=== PATIENT | female | born 1965 | race Asian ===

== ENCOUNTER 2018-09-24 16:51 | Inpatient (IN) | payer OTHER ==
[~2018-09-24] VITALS: Ht 157.5 cm; Wt 92.7 kg
[2018-09-24] MEDS ORDERED: LABETALOL 5MG/ML, 20ML ONE (17:09)
[2018-09-24] MEDS ORDERED: OMNIPAQUE 350 MG/ML, 100ML BOTTLE ONE (17:20)
[2018-09-24 17:22] LABS: BASOPHILS # (AUTO) 0.05 x10^3/uL (0-0.1); BASOPHILS % (AUTO) 1 % (0-1); EOSINOPHILS # (AUTO) 0.17 x10^3/uL (0-0.4); EOSINOPHILS % (AUTO) 2 % (1-7); LYMPHOCYTES # (AUTO) 2.62 x10^3/uL (1-3.4); LYMPHOCYTES % (AUTO) 34 % (22-44); MD NO; MEAN CORPUSCULAR HEMOGLOBIN 22.3 pg (27.0-34.8); MEAN CORPUSCULAR HGB CONC 31.8 g/dL (32.4-35.8); MONOCYTES # (AUTO) 0.36 x10^3/uL (0.2-0.8); MONOCYTES % (AUTO) 5 % (2-9); NEUTROPHILS # (AUTO) 4.45 x10^3/uL (1.8-6.8); NEUTROPHILS % (AUTO) 58 % (42-75); PLATELET COUNT 357 x10^3/uL (130-400); RED BLOOD COUNT 5.38 x10^6/uL (3.82-5.3); RED CELL DISTRIBUTION WIDTH 17.9 % (9.6-15.2)
[2018-09-24 17:32] LABS: INTERNATIONAL NORMALIZED RATIO 0.97 (0.93-1.1); PROTHROMBIN TIME 10.1 Seconds (9.6-11.5)
[2018-09-24] MEDS ORDERED: LABETALOL 5MG/ML, 20ML IVPush ONE (18:17)
[2018-09-24] MEDS ORDERED: ACETAMINOPHEN 325 MG TABLET PO PRN (19:00)
[2018-09-24] MEDS ORDERED: LABETALOL 5MG/ML, 20ML IV PRN (19:00)
[2018-09-24] MEDS ORDERED: ONDANSETRON 2MG/ML, 2ML IVPush PRN (19:00)
[2018-09-24 19:23] LABS: ANION GAP 8 mmol/L (5-15); CALCIUM 8.9 mg/dL (8.5-10.1); CHLORIDE 106 mmol/L (98-107); CREATININE 0.86 mg/dL (0.55-1.02)
[2018-09-24 20:00] VITALS: BP 160/85
[2018-09-24] MEDS: ATORVASTATIN 40 MG TABLET PO SCH (21:00)
[2018-09-24 21:31] VITALS: BP 179/105
[2018-09-24] MEDS: ENOXAPARIN 40 MG/0.4 ML SQ SCH (22:11)
[2018-09-25] VITALS (7 sets, daily range): BP systolic 120–160; BP diastolic 77–90
[2018-09-25 05:43] LABS: CHOL/HDL RATIO 4.7; LDL/HDL RATIO 2.7 (0.5-3.0)
[2018-09-25] MEDS: ASPIRIN 81 MG TABLET CHEW PO/NG SCH (08:11)
[2018-09-25] MEDS ORDERED: LISINOPRIL 10 MG TABLET PO SCH (09:00)
[2018-09-25] MEDS ORDERED: LORazepam 0.5MG TABLET PO ONE (09:30)
[2018-09-25 15:28] LABS: HEMOGLOBIN A1C 6.5 % (4.2-6.3)
[2018-09-25] MEDS: ATORVASTATIN 40 MG TABLET PO SCH (20:32)
[2018-09-25] MEDS: ENOXAPARIN 40 MG/0.4 ML SQ SCH (20:32)
[2018-09-26 02:34] VITALS: BP 122/75
[2018-09-26 05:26] LABS: ALBUMIN 3.4 g/dL (3.4-5.0); ANION GAP 9 mmol/L (5-15); CALCIUM 8.3 mg/dL (8.5-10.1); CHLORIDE 108 mmol/L (98-107); CREATININE 0.72 mg/dL (0.55-1.02)
[2018-09-26] MEDS ORDERED: SODIUM CHLORIDE 0.9% 1,000 ML IV SCH (06:30)
[2018-09-26] MEDS ORDERED: LORazepam 0.5MG TABLET PO ONE (07:00)
[2018-09-26 07:03] VITALS: BP 124/84
[2018-09-26 07:04] VITALS: BP 126/83
[2018-09-26 07:05] VITALS: BP 122/82
[2018-09-26] MEDS: ASPIRIN 81 MG TABLET CHEW PO/NG SCH (07:47)
[2018-09-26 12:25] VITALS: BP 144/88
[2018-09-26 14:55] LABS: FREE T4 (FREE THYROXINE) 1.07 ng/dL (0.76-1.46); THYROID STIMULATING HORMONE 0.947 mIU/L (0.358-3.740)
[2018-09-26] MEDS ORDERED: ATOR40TA78 PO (15:54)
[2018-09-26] MEDS ORDERED: ASPI-515 PO/NG (15:54)
== END 2018-09-26 16:52 | disposition home or self-care (01) | DRG 65 ==
LOC: ED 19:15 → EDIP 19:41 → 4EST 19:45 → DCLOUNGE 09-26 16:28
PROVIDERS: ADMIT Internal Medicine; ATTEND Internal Medicine
DX: I63.9 Cerebral infarction, unspecified (principal); I16.1 Hypertensive emergency; G81.94 Hemiplegia, unspecified affecting left nondominant side; F40.240 Claustrophobia; E78.5 Hyperlipidemia, unspecified; E04.1 Nontoxic single thyroid nodule; R47.01 Aphasia; Z79.82 Long term (current) use of aspirin; Z86.72 Personal history of thrombophlebitis; Z87.448 Personal history of other diseases of urinary system; Z82.49 Family history of ischemic heart disease and other diseases of the circulatory system; Z80.1 Family history of malignant neoplasm of trachea, bronchus and lung; Z80.0 Family history of malignant neoplasm of digestive organs
CPT/HCPCS: 36415; 70450; 70496; 70498; 70551; 80047; 80048; 80061; 82040; 82962; 83036; 84439; 84443; 85025; 85610; 85730; 93005; 93306; 93880; 96374; 99285; G0378; J1650; Q9967; 92523-GN; J7030

== ENCOUNTER 2018-12-08 18:47 | Emergency (ER) | payer OTHER ==
[~2018-12-08] VITALS: Ht 157.5 cm; Wt 87.9 kg
[~2018-12-08 18:47] MED LIST: ASPI-515 PO/NG; ATOR40TA78 PO
[2018-12-08 19:35] LABS: MEAN CORPUSCULAR HEMOGLOBIN 21.7 pg (27.0-34.8); MEAN CORPUSCULAR HGB CONC 31.4 g/dL (32.4-35.8); MEAN CORPUSCULAR VOLUME 69.1 fL (80-100); MEAN PLATELET VOLUME 7.5 fL (7.4-10.4); PLATELET COUNT 261 x10^3/uL (130-400); RED BLOOD COUNT 4.23 x10^6/uL (3.82-5.3); RED CELL DISTRIBUTION WIDTH 24.8 % (9.6-15.2)
[2018-12-08 19:43] LABS: ALANINE AMINOTRANSFERASE 22 U/L (12-78); ALBUMIN 3.6 g/dL (3.4-5.0); ANION GAP 10 mmol/L (5-15); CALCIUM 8.8 mg/dL (8.5-10.1); CHLORIDE 108 mmol/L (98-107); CREATININE 0.77 mg/dL (0.55-1.02)
[2018-12-08 19:45] LABS: ALKALINE PHOSPHATASE 74 U/L (45-117); BILIRUBIN,TOTAL 0.4 mg/dL (0.2-1.0); TOTAL PROTEIN 7.6 g/dL (6.4-8.2)
[2018-12-08 19:49] LABS: BASOPHILS # (AUTO) 0.01 x10^3/uL (0-0.1); BASOPHILS % (AUTO) 0 % (0-1); EOSINOPHILS # (AUTO) 0.08 x10^3/uL (0-0.4); EOSINOPHILS % (AUTO) 1 % (1-7); LYMPHOCYTES # (AUTO) 0.96 x10^3/uL (1-3.4); LYMPHOCYTES % (AUTO) 16 % (22-44); MD MORPH REVIEW ONLY; MONOCYTES # (AUTO) 0.42 x10^3/uL (0.2-0.8); MONOCYTES % (AUTO) 7 % (2-9); NEUTROPHILS # (AUTO) 4.68 x10^3/uL (1.8-6.8); NEUTROPHILS % (AUTO) 76 % (42-75)
[2018-12-08 19:50] LABS: <PLATELET ESTIMATE> ADEQUATE; <PLT MORPHOLOGY> NORMAL PLT MORPH; ANISOCYTOSIS 2+; HYPOCHROMIA 1+; MICROCYTOSIS 2+; OVALOCYTES 1+; POLYCHROMASIA 1+
--- NOTE | 2018-12-08 20:10 | NUR ---
REPORT TO ALENA ELENA
--- NOTE | 2018-12-08 20:13 | NUR ---
PT REPORTS HAVING A TINGLING/NUMBNESS FEELING AROUND HER LIPS TONIGHT. PT REPORTS IT HAS RESOLVED NOW. FAMILY AT BEDSIDE. CALL LIGHT IN PLACE. WILL CONTINUE TO MONITOR.
--- NOTE | 2018-12-08 20:14 | NUR ---
ED PO AT BEDSIDE TO EXAMINE PT. PT REPORTS NUMBNESS TO LIPS THAT STARTED APPROX 2 HRS AGO, BUT HAS MOSTLY RESOLVED. 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 PT IS A&O, RESPS EVEN AND UNLABORED, BP AND SPO2 MONITORS IN PLACE. PER MD, CODE NEURO NOT APPROPRIATE FOR THIS PT D/T NORMAL EXAM AND RAPIDLY RESOLVING SX.
--- NOTE | 2018-12-08 20:21 | NUR ---
DR FONTENOT IN ROOM
[2018-12-08 20:38] VITALS: BP 123/54
== END 2018-12-08 20:47 | disposition home or self-care (01) ==
LOC: ED 19:57
DX: D64.9 Anemia, unspecified (principal); R20.2 Paresthesia of skin
CPT/HCPCS: 36415; 70450; 80053; 85025; 93005; 99284

== ENCOUNTER → 2019-01-30 | Outpatient (CLI) | payer OTHER ==
[~2019-01-30] MED LIST changes: +ACET325T14 PO; +ENOX80SY5 SQ; +LOSA25TA25 PO; +MULT-709 PO; +ROSU10TA2 PO
[2019-01-30 12:08] LABS: INTERNATIONAL NORMALIZED RATIO 0.97 (0.93-1.1); PROTHROMBIN TIME 10.2 Seconds (9.6-11.5)
[2019-01-30 12:09] LABS: ALANINE AMINOTRANSFERASE 21 U/L (12-78); ANION GAP 6 mmol/L (5-15); CALCIUM 9.2 mg/dL (8.5-10.1); CHLORIDE 108 mmol/L (98-107); CREATININE 0.72 mg/dL (0.55-1.02)
[2019-01-30 12:12] LABS: ALKALINE PHOSPHATASE 76 U/L (45-117); BILIRUBIN,TOTAL 0.5 mg/dL (0.2-1.0); TOTAL PROTEIN 7.6 g/dL (6.4-8.2)
[2019-01-30 12:15] LABS: BASOPHILS # (AUTO) 0.01 x10^3/uL (0-0.1); BASOPHILS % (AUTO) 0 % (0-1); EOSINOPHILS # (AUTO) 0.07 x10^3/uL (0-0.4); EOSINOPHILS % (AUTO) 1 % (1-7); LYMPHOCYTES # (AUTO) 0.82 x10^3/uL (1-3.4); LYMPHOCYTES % (AUTO) 14 % (22-44); MD NO; MEAN CORPUSCULAR HEMOGLOBIN 23.8 pg (27.0-34.8); MEAN CORPUSCULAR HGB CONC 30.6 g/dL (32.4-35.8); MEAN PLATELET VOLUME 7.1 fL (7.4-10.4); MONOCYTES # (AUTO) 0.57 x10^3/uL (0.2-0.8); MONOCYTES % (AUTO) 10 % (2-9); NEUTROPHILS # (AUTO) 4.54 x10^3/uL (1.8-6.8); NEUTROPHILS % (AUTO) 75 % (42-75); PLATELET COUNT 327 x10^3/uL (130-400)
== END | disposition home or self-care (01) ==
LOC: STAR 10:16
PROVIDERS: ATTEND Specialist
DX: R19.07 Generalized intra-abdominal and pelvic swelling, mass and lump (principal); R97.1 Elevated cancer antigen 125 [CA 125]
CPT/HCPCS: 36415; 80053; 85025; 85610; 85730

== ENCOUNTER 2019-02-03 10:23 | Inpatient (IN) | payer OTHER ==
[2019-02-03] VITALS (7 sets, daily range): BP systolic 129–155; BP diastolic 83–90
[~2019-02-03] VITALS: Ht 162.6 cm; Wt 81.7 kg
[2019-02-03] MEDS ORDERED: LACTATED RINGERS 1,000 ML IV SCH (15:32)
[2019-02-03] MEDS ORDERED: percocet PO (15:33)
[2019-02-03] MEDS ORDERED: MIDAZOLAM 1 MG/ML, 2ML ONE (16:58)
[2019-02-03] MEDS ORDERED: FENTANYL PF 250 MCG/5ML ONE ×3 (17:00→20:53)
[2019-02-03] MEDS ORDERED: PROPOFOL 10 MG/ML, 20ML ONE (17:01)
[2019-02-03] MEDS ORDERED: ROCURONIUM 10MG/ML,5ML ONE (17:01)
[2019-02-03] MEDS ORDERED: SUCCINYLCHOLINE 20 MG/ML, 10ML ONE (17:02)
[2019-02-03] MEDS ORDERED: INDIGO CARMINE 0.8%, 5ML ONE (17:42)
[2019-02-03] MEDS ORDERED: HEPARIN 1,000 UNITS/ML, 10ML ONE (17:42)
[2019-02-03] MEDS ORDERED: CEFOTETAN 1 GM ONE (18:51)
[2019-02-03] MEDS ORDERED: DEXAMETHASONE 4 MG/ML, 1ML ONE (18:51)
[2019-02-03] MEDS ORDERED: CEFOTETAN 2 GM ONE (18:51)
[2019-02-03] MEDS ORDERED: DIPHENHYDRAMINE 50 MG/ML, 1ML ONE (20:20)
[2019-02-03] MEDS ORDERED: ONDANSETRON 2MG/ML, 2ML IV PRN (20:30)
[2019-02-03] MEDS ORDERED: LORazepam 2 MG/ML, 1ML IVPush PRN (20:30)
[2019-02-03] MEDS ORDERED: MEPERIDINE/PF 25MG/0.5ML IVPush PRN (20:30)
[2019-02-03] MEDS ORDERED: FENTANYL PF 100 MCG/2ML IV PRN (20:30)
[2019-02-03] MEDS ORDERED: OXYcodone 5 MG/5 ML ORAL.SOL UDC PO PRN (20:30)
[2019-02-03] MEDS ORDERED: hydrALAzine 20 MG/ML, 1ML IV PRN (20:30)
[2019-02-03] MEDS ORDERED: ONDANSETRON ODT 8 MG PO PRN (20:30)
[2019-02-03] MEDS ORDERED: ALBUTEROL SULFATE 2.5 MG/3 ML NPPB PRN (20:30)
[2019-02-03] MEDS ORDERED: LABETALOL 5 MG/ML SYRINGE IV PRN (20:30)
[2019-02-03] MEDS ORDERED: PROMETHAZINE 12.5 MG SUPP PR PRN (20:30)
[2019-02-03] MEDS ORDERED: DIAZEPAM 5 MG/ML, 10ML VIAL IVPush PRN (20:30)
[2019-02-03] MEDS ORDERED: MORPHINE SULFATE 4 MG/ML, 1ML IVPush PRN (20:30)
[2019-02-03] MEDS ORDERED: PROMETHAZINE 25 MG/ML, 1ML IV PRN (20:30)
[2019-02-03] MEDS ORDERED: EPHEDRINE 50 MG/ML, 1ML IVPush PRN (20:30)
[2019-02-03] MEDS ORDERED: HALOPERIDOL 5 MG/ML IV PRN (20:30)
[2019-02-03] MEDS ORDERED: SUGAMMADEX 200 MG/2 ML IVPush ONE (21:25)
[2019-02-03] MEDS ORDERED: ONDANSETRON 2MG/ML, 2ML ONE (21:36)
[2019-02-03] MEDS ORDERED: LIDOCAINE-MPF 2% ,5ML ONE ×2 (21:40)
[2019-02-03] MEDS ORDERED: HYDROmorphone 2 MG/ML, 1ML ONE (22:08)
[2019-02-03] MEDS ORDERED: FENTANYL PF 100 MCG/2ML ONE (22:08)
[2019-02-03] MEDS: HYDROmorphone 2 MG/ML, 1ML IVPush PRN ×2 (22:14→22:21)
[2019-02-03] MEDS ORDERED: D5%-0.45NACL+KCL 20MEQ 1,000 ML IV SCH (23:00)
[2019-02-03 23:14] LABS: ALANINE AMINOTRANSFERASE 50 U/L (12-78); ALBUMIN 2.4 g/dL (3.4-5.0); ANION GAP 5 mmol/L (5-15); CALCIUM 7.5 mg/dL (8.5-10.1); CHLORIDE 112 mmol/L (98-107)
[2019-02-03 23:16] LABS: ALKALINE PHOSPHATASE 37 U/L (45-117); BILIRUBIN,TOTAL 0.8 mg/dL (0.2-1.0); TOTAL PROTEIN 4.7 g/dL (6.4-8.2)
[2019-02-04 00:43] VITALS: BP 145/87
[2019-02-04] MEDS: FAMOTIDINE 20 MG/2 ML IV SCH ×3 (01:18→21:41)
[2019-02-04] MEDS: KETOROLAC 30 MG/1 ML IV SCH ×4 (01:19→21:41)
[2019-02-04 02:00] VITALS: BP 142/86
[2019-02-04] MEDS: D5%-0.45% NACL 1,000 ML IV SCH ×4 (02:44→21:44)
[2019-02-04 06:35] VITALS: BP 135/82
[2019-02-04 09:44] LABS: ALBUMIN 2.1 g/dL (3.4-5.0); ANION GAP 6 mmol/L (5-15); CALCIUM 7.6 mg/dL (8.5-10.1); CHLORIDE 111 mmol/L (98-107); CREATININE 0.73 mg/dL (0.55-1.02)
[2019-02-04 11:27] LABS: MEAN CORPUSCULAR HGB CONC 32.1 g/dL (32.4-35.8); MEAN CORPUSCULAR VOLUME 80.9 fL (80-100); RED BLOOD COUNT 4.18 x10^6/uL (3.82-5.3)
[2019-02-04 11:28] LABS: MEAN PLATELET VOLUME 7.4 fL (7.4-10.4); PLATELET COUNT 194 x10^3/uL (130-400)
[2019-02-04 11:30] LABS: MD YES
[2019-02-04 11:32] LABS: BAND#(MANUAL) 0.28 x10^3/uL; BANDS%(MANUAL) 4 % (0-7); LYMPH#(MANUAL) 0.21 x10^3/uL (1-3.4); LYMPHS% (MANUAL) 3 % (22-44); MONOS#(MANUAL) 0.14 x10^3/uL (0.3-2.7); MONOS% (MANUAL) 2 % (2-9); SEG#(MANUAL) 6.37 x10^3/uL (1.8-6.8); SEGS% (MANUAL) 91 % (42-75)
[2019-02-04 11:36] LABS: ANISOCYTOSIS 2+; HYPOCHROMIA 1+; MICROCYTOSIS 1+; OVALOCYTES 1+; POLYCHROMASIA 1+
[2019-02-04 11:37] LABS: <PLATELET ESTIMATE> ADEQUATE; <PLT MORPHOLOGY> NORMAL PLT MORPH
[2019-02-04 14:12] VITALS: BP 129/77
[2019-02-04 19:24] VITALS: BP 117/73
[2019-02-05 02:02] VITALS: BP 116/70
[2019-02-05] MEDS: D5%-0.45% NACL 1,000 ML IV SCH ×3 (04:18→18:21)
[2019-02-05 05:06] LABS: BASOPHILS # (AUTO) 0.01 x10^3/uL (0-0.1); BASOPHILS % (AUTO) 0 % (0-1); EOSINOPHILS # (AUTO) 0.01 x10^3/uL (0-0.4); EOSINOPHILS % (AUTO) 0 % (1-7); LYMPHOCYTES # (AUTO) 0.74 x10^3/uL (1-3.4); LYMPHOCYTES % (AUTO) 12 % (22-44); MD NO; MEAN CORPUSCULAR HEMOGLOBIN 26.1 pg (27.0-34.8); MEAN CORPUSCULAR HGB CONC 32.2 g/dL (32.4-35.8); MEAN PLATELET VOLUME 7.2 fL (7.4-10.4); MONOCYTES # (AUTO) 0.61 x10^3/uL (0.2-0.8); MONOCYTES % (AUTO) 10 % (2-9); NEUTROPHILS # (AUTO) 5.05 x10^3/uL (1.8-6.8); NEUTROPHILS % (AUTO) 79 % (42-75); PLATELET COUNT 235 x10^3/uL (130-400); RED BLOOD COUNT 3.56 x10^6/uL (3.82-5.3); RED CELL DISTRIBUTION WIDTH 17.7 % (9.6-15.2)
[2019-02-05] MEDS: KETOROLAC 30 MG/1 ML IV SCH ×3 (06:32→20:30)
[2019-02-05] MEDS: FAMOTIDINE 20 MG/2 ML IV SCH ×2 (08:17→20:30)
[2019-02-05] MEDS: RIVAROXABAN 15 MG TABLET PO SCH ×2 (08:17→16:15)
[2019-02-05 08:31] VITALS: BP 110/68
[2019-02-05 12:02] VITALS: BP 117/71
[2019-02-05] MEDS: ACETAMINOPHEN 325 MG TABLET PO PRN ×2 (16:15→22:56)
[2019-02-05 20:07] VITALS: BP 93/60
[2019-02-06] MEDS: D5%-0.45% NACL 1,000 ML IV SCH ×4 (00:18→21:00)
[2019-02-06 00:45] VITALS: BP 95/62
[2019-02-06] MEDS: KETOROLAC 30 MG/1 ML IV SCH ×3 (04:49→21:39)
[2019-02-06 08:30] VITALS: BP 102/64
[2019-02-06] MEDS: FAMOTIDINE 20 MG/2 ML IV SCH ×2 (09:44→21:39)
[2019-02-06] MEDS: RIVAROXABAN 15 MG TABLET PO SCH (09:44)
[2019-02-06] MEDS: ACETAMINOPHEN 325 MG TABLET PO PRN (09:56)
[2019-02-06 14:01] VITALS: BP 108/61
[2019-02-06 20:09] VITALS: BP 135/79
[2019-02-07 02:00] VITALS: BP 124/73
[2019-02-07] MEDS: D5%-0.45% NACL 1,000 ML IV SCH (02:32)
[2019-02-07] MEDS: KETOROLAC 30 MG/1 ML IV SCH ×3 (05:06→21:35)
[2019-02-07 08:41] VITALS: BP 118/74
[2019-02-07] MEDS ORDERED: RIVAROXABAN 20 MG TABLET PO SCH (09:00)
[2019-02-07] MEDS ORDERED: OXYcodone/APAP 7.5/325MG TABLET PO PRN (10:30)
[2019-02-07] MEDS: FAMOTIDINE 20 MG/2 ML IV SCH ×2 (10:39→21:35)
[2019-02-07] MEDS ORDERED: ONDANSETRON 4 MG TABLET ONE (12:23)
[2019-02-07 12:24] VITALS: BP 148/91
[2019-02-07] MEDS ORDERED: ONDANSETRON ODT 4 MG ONE (12:24)
[2019-02-07] MEDS: ONDANSETRON ODT 4 MG PO PRN ×2 (12:29→23:00)
[2019-02-07] MEDS ORDERED: ONDANSETRON 2MG/ML, 2ML ONE (18:04)
[2019-02-07] MEDS ORDERED: ONDANSETRON 2MG/ML, 2ML IVPush ONE (18:30)
[2019-02-07 19:52] VITALS: BP 136/81
[2019-02-08] MEDS: MORPHINE SULFATE 4 MG/ML, 1ML IVPush PRN ×2 (00:12→10:20)
[2019-02-08 02:48] VITALS: BP 138/81
[2019-02-08] MEDS: ONDANSETRON 2MG/ML, 2ML IVPush PRN (06:25)
[2019-02-08] MEDS: KETOROLAC 30 MG/1 ML IV SCH ×2 (06:25→13:52)
[2019-02-08] MEDS: D5%-0.45NACL+KCL 20MEQ 1,000 ML IV SCH ×3 (06:27→22:04)
[2019-02-08] MEDS: FAMOTIDINE 20 MG/2 ML IV SCH ×2 (07:26→21:31)
[2019-02-08] MEDS: RIVAROXABAN 15 MG TABLET PO SCH ×2 (07:27→21:31)
[2019-02-08 08:30] VITALS: BP 138/86
[2019-02-08 13:56] VITALS: BP 120/75
[2019-02-08 19:29] VITALS: BP 136/84
[2019-02-09 01:48] VITALS: BP 154/84
[2019-02-09] MEDS: ACETAMINOPHEN 325 MG TABLET PO PRN ×2 (01:58→09:02)
[2019-02-09] MEDS: D5%-0.45NACL+KCL 20MEQ 1,000 ML IV SCH ×3 (05:22→19:56)
[2019-02-09 08:24] VITALS: BP 148/77
[2019-02-09] MEDS: RIVAROXABAN 15 MG TABLET PO SCH ×2 (09:02→20:47)
[2019-02-09] MEDS: FAMOTIDINE 20 MG/2 ML IV SCH ×2 (09:02→20:47)
[2019-02-09 12:54] LABS: ALANINE AMINOTRANSFERASE 12 U/L (12-78); ALBUMIN 1.5 g/dL (3.4-5.0); ANION GAP 6 mmol/L (5-15); CALCIUM 8.1 mg/dL (8.5-10.1); CHLORIDE 109 mmol/L (98-107); CREATININE 1.38 mg/dL (0.55-1.02)
[2019-02-09 12:56] LABS: ALKALINE PHOSPHATASE 63 U/L (45-117); BILIRUBIN,TOTAL 0.5 mg/dL (0.2-1.0); TOTAL PROTEIN 5.2 g/dL (6.4-8.2)
[2019-02-09 12:58] LABS: MEAN CORPUSCULAR HEMOGLOBIN 26.5 pg (27.0-34.8); MEAN CORPUSCULAR HGB CONC 33.4 g/dL (32.4-35.8); MEAN CORPUSCULAR VOLUME 79.4 fL (80-100); MEAN PLATELET VOLUME 6.8 fL (7.4-10.4); PLATELET COUNT 523 x10^3/uL (130-400); RED BLOOD COUNT 3.84 x10^6/uL (3.82-5.3)
[2019-02-09 13:31] VITALS: BP 144/77
[2019-02-09 13:32] LABS: BASOPHILS # (AUTO) 0.01 x10^3/uL (0-0.1); BASOPHILS % (AUTO) 0 % (0-1); EOSINOPHILS # (AUTO) 0.11 x10^3/uL (0-0.4); EOSINOPHILS % (AUTO) 2 % (1-7); LYMPHOCYTES # (AUTO) 0.58 x10^3/uL (1-3.4); LYMPHOCYTES % (AUTO) 8 % (22-44); MD MORPH REVIEW ONLY; MONOCYTES # (AUTO) 0.67 x10^3/uL (0.2-0.8); MONOCYTES % (AUTO) 10 % (2-9); NEUTROPHILS # (AUTO) 5.46 x10^3/uL (1.8-6.8); NEUTROPHILS % (AUTO) 80 % (42-75)
[2019-02-09 13:33] LABS: ANISOCYTOSIS 2+; MICROCYTOSIS 1+; OVALOCYTES 1+; POLYCHROMASIA 1+; SCHISTOCYTES 1+
[2019-02-09 13:34] LABS: <PLATELET ESTIMATE> INCREASED; <PLT MORPHOLOGY> NORMAL PLT MORPH; ECHINOCYTES 1+
[2019-02-09] MEDS ORDERED: SODIUM CHLORIDE 0.9% 1,000ML IVBOLUS ONE (18:00)
[2019-02-09] MEDS: ONDANSETRON 2MG/ML, 2ML IVPush PRN (18:59)
[2019-02-09 19:36] VITALS: BP 152/80
[2019-02-10] MEDS: ACETAMINOPHEN 325 MG TABLET PO PRN ×4 (00:27→22:40)
[2019-02-10 01:50] VITALS: BP 146/79
[2019-02-10] MEDS: D5%-0.45NACL+KCL 20MEQ 1,000 ML IV SCH ×3 (04:24→22:52)
[2019-02-10] MEDS: ONDANSETRON 2MG/ML, 2ML IVPush PRN (09:13)
[2019-02-10] MEDS: FAMOTIDINE 20 MG/2 ML IV SCH ×2 (09:13→21:01)
[2019-02-10] MEDS: RIVAROXABAN 15 MG TABLET PO SCH ×2 (09:14→21:01)
[2019-02-10 09:27] VITALS: BP 135/70
[2019-02-10 10:30] LABS: BASOPHILS # (AUTO) 0.03 x10^3/uL (0-0.1); BASOPHILS % (AUTO) 1 % (0-1); EOSINOPHILS % (AUTO) 4 % (1-7); LYMPHOCYTES # (AUTO) 0.65 x10^3/uL (1-3.4); LYMPHOCYTES % (AUTO) 12 % (22-44); MD NO; MEAN CORPUSCULAR HEMOGLOBIN 25.7 pg (27.0-34.8); MEAN CORPUSCULAR HGB CONC 32.1 g/dL (32.4-35.8); MEAN PLATELET VOLUME 6.4 fL (7.4-10.4); MONOCYTES # (AUTO) 0.61 x10^3/uL (0.2-0.8); MONOCYTES % (AUTO) 11 % (2-9); NEUTROPHILS # (AUTO) 4.14 x10^3/uL (1.8-6.8); NEUTROPHILS % (AUTO) 74 % (42-75); PLATELET COUNT 582 x10^3/uL (130-400); RED BLOOD COUNT 3.69 x10^6/uL (3.82-5.3); RED CELL DISTRIBUTION WIDTH 17.3 % (9.6-15.2)
[2019-02-10 10:39] LABS: ANION GAP 4 mmol/L (5-15); CHLORIDE 111 mmol/L (98-107); CREATININE 1.16 mg/dL (0.55-1.02)
[2019-02-10 14:00] VITALS: BP 147/84
[2019-02-10 18:56] VITALS: BP 144/84
[2019-02-11] MEDS: MORPHINE SULFATE 4 MG/ML, 1ML IVPush PRN ×4 (00:57→21:14)
[2019-02-11 02:23] VITALS: BP 149/82
[2019-02-11] MEDS: D5%-0.45NACL+KCL 20MEQ 1,000 ML IV SCH ×2 (05:51→21:25)
[2019-02-11] MEDS: ACETAMINOPHEN 325 MG TABLET PO PRN (06:17)
[2019-02-11] MEDS: ONDANSETRON 2MG/ML, 2ML IVPush PRN (06:26)
[2019-02-11 07:50] VITALS: BP 149/85
[2019-02-11] MEDS: FAMOTIDINE 20 MG/2 ML IV SCH (10:08)
[2019-02-11] MEDS: RIVAROXABAN 15 MG TABLET PO SCH ×2 (10:08→21:14)
[2019-02-11 10:29] LABS: ANION GAP 3 mmol/L (5-15); CALCIUM 8.3 mg/dL (8.5-10.1); CHLORIDE 110 mmol/L (98-107)
[2019-02-11 14:36] VITALS: BP 135/85
[2019-02-11 18:32] VITALS: BP 133/84
[2019-02-11] MEDS: FAMOTIDINE 20 MG TABLET PO SCH (21:14)
[2019-02-12 02:00] VITALS: BP 128/81
[2019-02-12] MEDS: MORPHINE SULFATE 4 MG/ML, 1ML IVPush PRN ×3 (06:29→22:07)
[2019-02-12 08:36] VITALS: BP 144/85
[2019-02-12] MEDS: FAMOTIDINE 20 MG TABLET PO SCH ×2 (08:45→21:28)
[2019-02-12] MEDS: RIVAROXABAN 15 MG TABLET PO SCH ×2 (08:45→21:28)
[2019-02-12 13:04] VITALS: BP 128/83
[2019-02-12] MEDS ORDERED: OMNIPAQUE 350 MG/ML, 150 ML BOTTLE ONE (16:09)
[2019-02-12] MEDS: ACETAMINOPHEN 325 MG TABLET PO PRN (17:05)
[2019-02-12] MEDS: D5%-0.45NACL+KCL 20MEQ 1,000 ML IV SCH (19:55)
[2019-02-12 20:30] VITALS: BP 120/80
[2019-02-13 01:25] VITALS: BP 121/79
[2019-02-13] MEDS: ACETAMINOPHEN 325 MG TABLET PO PRN (01:27)
[2019-02-13] MEDS: MORPHINE SULFATE 4 MG/ML, 1ML IVPush PRN ×4 (02:11→18:09)
[2019-02-13] MEDS: FAMOTIDINE 20 MG TABLET PO SCH ×2 (07:57→21:02)
[2019-02-13] MEDS: RIVAROXABAN 15 MG TABLET PO SCH ×2 (07:57→21:02)
[2019-02-13 08:00] VITALS: BP 123/75
[2019-02-13 12:29] VITALS: BP 136/84
[2019-02-13 20:39] VITALS: BP 125/82
[2019-02-13] MEDS: D5%-0.45NACL+KCL 20MEQ 1,000 ML IV SCH (21:00)
[2019-02-14] MEDS: MORPHINE SULFATE 4 MG/ML, 1ML IVPush PRN ×2 (00:02→08:03)
[2019-02-14 03:18] VITALS: BP 139/82
[2019-02-14 07:02] VITALS: BP 128/81
[2019-02-14] MEDS: RIVAROXABAN 15 MG TABLET PO SCH (08:03)
[2019-02-14] MEDS: FAMOTIDINE 20 MG TABLET PO SCH (08:03)
[2019-02-14 12:01] LABS: ANION GAP 6 mmol/L (5-15); CALCIUM 8.6 mg/dL (8.5-10.1); CHLORIDE 104 mmol/L (98-107); CREATININE 0.64 mg/dL (0.55-1.02)
[2019-03-01] MEDS ORDERED: RIVAROXABAN 20 MG TABLET PO SCH (09:00)
== END 2019-02-14 12:30 | disposition home health service (06) | DRG 737 ==
LOC: ORIP 14:58 → 3NW 02-04 00:19
PROVIDERS: ADMIT Specialist; ATTEND Specialist
PROC: 0DBU0ZZ Excision of Omentum, Open Approach (ICD-10-PCS; 2019-02-03)
PROC: 0UT20ZZ Resection of Bilateral Ovaries, Open Approach (ICD-10-PCS; 2019-02-03)
PROC: 0UT70ZZ Resection of Bilateral Fallopian Tubes, Open Approach (ICD-10-PCS; 2019-02-03)
PROC: 0BBT0ZZ Excision of Diaphragm, Open Approach (ICD-10-PCS; 2019-02-03)
PROC: 30233N1 Transfusion of Nonautologous Red Blood Cells into Peripheral Vein, Percutaneous Approach (ICD-10-PCS; 2019-02-03)
PROC: 0UT90ZZ Resection of Uterus, Open Approach (ICD-10-PCS; principal; 2019-02-03 17:00)
DX: C56.2 Malignant neoplasm of left ovary (principal); E46 Unspecified protein-calorie malnutrition; R18.0 Malignant ascites; C56.1 Malignant neoplasm of right ovary; C54.1 Malignant neoplasm of endometrium; N13.5 Crossing vessel and stricture of ureter without hydronephrosis; N83.9 Noninflammatory disorder of ovary, fallopian tube and broad ligament, unspecified; Z68.30 Body mass index [BMI] 30.0-30.9, adult; Z79.01 Long term (current) use of anticoagulants; Z86.711 Personal history of pulmonary embolism; Z86.718 Personal history of other venous thrombosis and embolism; Z86.73 Personal history of transient ischemic attack (TIA), and cerebral infarction without residual deficits; Z95.828 Presence of other vascular implants and grafts
CPT/HCPCS: 36415; 74018; J3490; 71045; 74178; 80048; 80053; 82040; 82330; 82570; 82803; 82947; 84132; 84295; 85014; 85025; 86850; 86870; 86900; 86902; 86922; 86923; 88305; 88307; C1729; G0378; J1100; J1170; J1644; J1885; J2250; J2270; J2405; J2704; J3010; Q0162; Q9967; C1765; C1769; J0330; J1200; J3480; J7030; J7120; P9016

== ENCOUNTER → 2019-03-06 | Outpatient (CLI) | payer OTHER ==
[~2019-03-06] MED LIST changes: +percocet PO
== END | disposition home or self-care (01) ==
LOC: RAD 08:29
PROVIDERS: ATTEND Specialist
DX: C78.80 Secondary malignant neoplasm of unspecified digestive organ (principal); C80.1 Malignant (primary) neoplasm, unspecified
CPT/HCPCS: 51600; 74430; Q9958

== ENCOUNTER → 2019-03-15 | Outpatient (CLI) | payer OTHER ==
[~2019-03-15] MED LIST changes: +OMNIPAQUE 350 MG/ML, 100ML BOTTLE ONE
== END | disposition home or self-care (01) ==
LOC: RAD 10:29
PROVIDERS: ATTEND Specialist
DX: Z51.11 Encounter for antineoplastic chemotherapy (principal); C56.1 Malignant neoplasm of right ovary; E04.1 Nontoxic single thyroid nodule; L98.6 Other infiltrative disorders of the skin and subcutaneous tissue; N32.89 Other specified disorders of bladder; M89.9 Disorder of bone, unspecified; Z90.710 Acquired absence of both cervix and uterus
CPT/HCPCS: 71260; 74177; Q9967

== ENCOUNTER → 2020-04-05 | Outpatient (CLI) | payer OTHER ==
[~2020-04-05] MED LIST changes: +AMLO10TA8 PO; +DEXA4TAB66 PO; +DILT120T3 PO; -OMNIPAQUE 350 MG/ML, 100ML BOTTLE ONE; +ONDA4TAB13 PO; +ONDA8TAB9 PO; +RIVA20TA PO; +TELM40TA7 PO; +TRAM50TA2 PO
== END | disposition home or self-care (01) ==
LOC: LAB 11:18
PROVIDERS: ATTEND Physician Assistant
DX: Z51.11 Encounter for antineoplastic chemotherapy (principal); C56.9 Malignant neoplasm of unspecified ovary; C56.1 Malignant neoplasm of right ovary; C56.2 Malignant neoplasm of left ovary; N32.2 Vesical fistula, not elsewhere classified; C78.80 Secondary malignant neoplasm of unspecified digestive organ; G89.3 Neoplasm related pain (acute) (chronic); M19.90 Unspecified osteoarthritis, unspecified site; I82.890 Acute embolism and thrombosis of other specified veins; R97.1 Elevated cancer antigen 125 [CA 125]; R06.02 Shortness of breath
CPT/HCPCS: 71046

== ENCOUNTER → 2020-06-24 | Outpatient (CLI) | payer OTHER ==
[~2020-06-24] MED LIST changes: +OMNIPAQUE 350 MG/ML, 100ML BOTTLE ONE
== END | disposition home or self-care (01) ==
LOC: RAD 10:36
PROVIDERS: ATTEND Physician Assistant
DX: Z51.11 Encounter for antineoplastic chemotherapy (principal); G89.3 Neoplasm related pain (acute) (chronic); C78.80 Secondary malignant neoplasm of unspecified digestive organ; C56.1 Malignant neoplasm of right ovary; C56.2 Malignant neoplasm of left ovary; K76.0 Fatty (change of) liver, not elsewhere classified; K82.8 Other specified diseases of gallbladder; J98.4 Other disorders of lung; R19.02 Left upper quadrant abdominal swelling, mass and lump; E04.1 Nontoxic single thyroid nodule; R97.1 Elevated cancer antigen 125 [CA 125]; N32.2 Vesical fistula, not elsewhere classified; M19.90 Unspecified osteoarthritis, unspecified site; I82.890 Acute embolism and thrombosis of other specified veins
CPT/HCPCS: 71260; 74177; Q9967

== ENCOUNTER → 2020-10-09 | Outpatient (CLI) | payer OTHER ==
[~2020-10-09] MED LIST changes: +AMLO-211 PO; -AMLO10TA8 PO
== END | disposition home or self-care (01) ==
LOC: CFH 13:24
PROVIDERS: ATTEND Specialist
DX: Z51.11 Encounter for antineoplastic chemotherapy (principal); C56.1 Malignant neoplasm of right ovary; C78.80 Secondary malignant neoplasm of unspecified digestive organ; R97.1 Elevated cancer antigen 125 [CA 125]; N32.2 Vesical fistula, not elsewhere classified; G89.3 Neoplasm related pain (acute) (chronic); I82.890 Acute embolism and thrombosis of other specified veins; M19.90 Unspecified osteoarthritis, unspecified site; R06.02 Shortness of breath; D70.1 Agranulocytosis secondary to cancer chemotherapy; K64.8 Other hemorrhoids; J98.4 Other disorders of lung; R19.09 Other intra-abdominal and pelvic swelling, mass and lump
CPT/HCPCS: 71260; 74177; Q9967

== ENCOUNTER → 2020-12-16 | Outpatient (CLI) | payer OTHER ==
[~2020-12-16] MED LIST changes: +ASPI-1024 PO/NG; -ASPI-515 PO/NG; +TELM40TA PO
== END | disposition home or self-care (01) ==
LOC: CFH 09:20
PROVIDERS: ATTEND Specialist
DX: C56.1 Malignant neoplasm of right ovary (principal); C78.80 Secondary malignant neoplasm of unspecified digestive organ; D70.1 Agranulocytosis secondary to cancer chemotherapy; K64.8 Other hemorrhoids; M62.08 Separation of muscle (nontraumatic), other site; R06.02 Shortness of breath
CPT/HCPCS: 71260; 74177; Q9967

== ENCOUNTER 2021-02-24 08:07 | Outpatient (CLI) | payer OTHER ==
[~2021-02-24 08:07] MED LIST changes: -ASPI-1024 PO/NG; +ASPI-963 PO/NG; -OMNIPAQUE 350 MG/ML, 100ML BOTTLE ONE
[2021-02-24] MEDS ORDERED: OMNIPAQUE 350 MG/ML, 100ML BOTTLE ONE (11:53)
== END 2021-02-24 23:59 | disposition home or self-care (01) ==
LOC: CFH 08:07
PROVIDERS: ATTEND Specialist
DX: C56.1 Malignant neoplasm of right ovary (principal); C78.80 Secondary malignant neoplasm of unspecified digestive organ; R79.1 Abnormal coagulation profile; N32.2 Vesical fistula, not elsewhere classified; G89.3 Neoplasm related pain (acute) (chronic); M19.90 Unspecified osteoarthritis, unspecified site; I82.890 Acute embolism and thrombosis of other specified veins; R06.02 Shortness of breath; D70.1 Agranulocytosis secondary to cancer chemotherapy; K64.8 Other hemorrhoids; E04.1 Nontoxic single thyroid nodule; J98.4 Other disorders of lung; Q63.0 Accessory kidney; Z51.11 Encounter for antineoplastic chemotherapy
CPT/HCPCS: 71260; 74177; Q9967

== ENCOUNTER → 2021-06-06 | Outpatient (CLI) | payer OTHER ==
[~2021-06-06] MED LIST changes: +OMNIPAQUE 350 MG/ML, 100ML BOTTLE ONE
== END | disposition home or self-care (01) ==
LOC: CFH 09:28
PROVIDERS: ATTEND Specialist
DX: C56.1 Malignant neoplasm of right ovary (principal); C78.80 Secondary malignant neoplasm of unspecified digestive organ; K64.8 Other hemorrhoids; Z51.11 Encounter for antineoplastic chemotherapy; D70.1 Agranulocytosis secondary to cancer chemotherapy; G89.3 Neoplasm related pain (acute) (chronic); I82.890 Acute embolism and thrombosis of other specified veins; M19.90 Unspecified osteoarthritis, unspecified site; R06.02 Shortness of breath; M25.80 Other specified joint disorders, unspecified joint; N32.2 Vesical fistula, not elsewhere classified
CPT/HCPCS: 71260; 74177; Q9967